=== PATIENT | male | born 2000 | race Two or more races ===

== ENCOUNTER 2024-03-05 14:13 | Outpatient (REF) | payer OTHER, SELFPAY ==
--- NOTE | ~2024-03-05 | MR_ITS ---
EXAMINATION: MR BRAIN WITHOUT CONTRAST CLINICAL INFORMATION: Constant headache for one month, increased frequency, blurring of vision COMPARISON: None available. TECHNIQUE: MRI of the brain was obtained using routine sequences without contrast. FINDINGS: Ventricles, sulci and cisterns are normal. No focal cerebral, brainstem or cerebellar lesions with abnormal signal can be seen. Diffusion weighted images show no abnormal regional decrease in diffusion. Normal flow voids of major intracerebral blood vessels are seen in the visualized portion. The pituitary gland is normal. Optic chiasm is not displaced. Cerebellar tonsils position is normal. T2 hyperintense polypoid mucosal lesion is partially visualized at anterior medial left maxillary sinus floor, measuring 1.9 x 1.6 cm in size. MR/MR head/brain wo con IMPRESSION: 1. Normal MRI scan of the brain. 2. No acute cerebral infarction is seen. 3. No evidence of space occupying mass lesion could be found. 4. No evidence of intracranial hemorrhage. 5. Left maxillary sinus floor mucosal polyp or mucus retention cyst is present.
== END 2024-03-05 14:14 | disposition home or self-care (01) ==
LOC: HO.MRI 14:13
PROVIDERS: PCP Family Medicine; Visit Provider Family Medicine
DX: L40.9 Psoriasis, unspecified (principal); R51.9 Headache, unspecified
CPT/HCPCS: 70551

== ENCOUNTER 2025-06-14 06:23 | Outpatient (REF) | payer OTHER, SELFPAY ==
--- NOTE | ~2025-06-14 | US_ITS ---
EXAMINATION: US PELVIS, LIMITED/FOLLOW UP CLINICAL INFORMATION: Right inguinal pain, rule out hernia. COMPARISON: None available. TECHNIQUE: Grayscale and color Doppler ultrasound imaging of the right inguinal region and right lower quadrant was performed in the region of pain as directed by the patient. Examination was performed with and without Valsalva maneuver. FINDINGS: There is no evidence of hernia identified. There is no mass, abnormal lymph nodes, or abnormal fluid collection identified in the region of interest in the right lower quadrant and inguinal region. US/US pelvic limited IMPRESSION: Normal examination. No abnormality identified. Electronically signed by: Emanuel Sharma MD 06/14/2025 11:14 AM EDT
--- OUTSIDE RECORDS SUMMARY | 2025-06-14 06:25 | XMS_ITS | Encounter Summary ---
Author Organization [facility] Address [address] [place] [id number] Phone Care Team Providers Care Radiology Therapist Name Role Phone Pcp, Unknown Primary Care Provider Unavailabl e Encounter Details Date Type Department Care Team (Late st Contact Info) Description 08/16/2024 Procedure Pass [facility], Ct Scan - [facility] [address] [place] [address] Social History Tobacco Use Types Packs/Day Years Used Date Smoking Tobacco: Never Assessed Education Answer Date Recorded Are you interested in more education? Not on johny e 12/21/2022 Are you concerned about learning? Not on file 12/21/2022 No 12/21/2022 No 12/21/2022 Digital Access Answer Date Recorded No 01/21/2023 No 01/21/2023 Reliable internet access at home? Not on file 01/21/2023 Device with a working camera? Not on file Intimate Partner Violence Answer Date R ecorded Are you denied basic needs s uch as food, clothing, or medical care? No 12/18/2022 In the past 12 months have y ou been in a relationship with a person who hurts, threatens, or tries to control you? No 12/18/2022 Are you denied basic needs s uch as food, clothing, or medical care? No 12/18/2022 In the past 12 months have y ou been in a relationship with a person who hurts, threatens, or tries to control you? No 12/18/2022 Sex and Gender Information Value Date Recorded Sex Assigned at Male 12/18/2022 6:46 PM EDT Legal Sex Male 6:11 PM EDT Gender Identity Male 12/18/2022 6:46 PM EDT Sexual Orientation Not on file documented as of this encounter Plan of Treatment Not on file documented as of this encounter Visit Diagnoses Not on filedocumented in this encounter Care Teams Radiology Therapist Relationship Specialty Start Date End Date Pcp, Unknown PCP - General 12/18/22 documented as of this encounter Additional Source Comments The information contained in this document represents components of the legal health record. It is not the complete legal health record.[facility]
--- OUTSIDE RECORDS SUMMARY | 2025-06-14 06:25 | XMS_ITS | Clinical Summary ---
Author Organization [facility] Address [address] [place] [id number] Phone Care Team Providers Care Fruit And Vegetable Inspector Name Role Phone Pcp, Unknown Primary Care Provider Unavailabl e Allergies No known active allergies Medications propranoloL (INDERAL) 10 MG immediate release tablet Take 10 mg by mouth daily as needed. Active citalopram (CELEXA) 20 MG tablet Take 20 mg by mouth nightly at bedtime. Active doxycycline monohydrate (MONODOX) 100 MG capsule Take 1 capsule (100 mg total) by mouth 2 (two) times a day. 20 capsule Active Additional Information Patient not taking.Reported on 12/10/2024 Social History Tobacco Use Types Packs/Day Years Used Date Smoking Tobacco: Never Smokeless Tobacco: Never Tobacco Cessation:Counseling Given: Not Answered Alcohol Use Standard Drinks/Week Comments Yes 0 (1 standard drink = 0.6 oz pur e alcohol) rarely Education Answer Date Recorded Are you interested [...] as food, clothing, or medical care? No 12/13/2024 In the past 12 months have y ou been in a relationship with a person who hurts, threatens, or tries to control you? No 12/13/2024 Are you denied basic needs s uch as food, clothing, or medical care? No 12/13/2024 In the past 12 months have y ou been in a relationship with a person who hurts, threatens, or tries to control you? No 12/13/2024 Sex and Gender Information Value Date Recorded Sex Assigned at Male 12/18/2022 6:46 PM EDT Legal Sex Male 6:11 PM EDT Gender Identity Male 12/18/2022 6:46 PM EDT Sexual Orientation Not on file Last Filed Vital Signs Vital Sign Reading Time Taken Comments Blood Pressure 125/62 12/13/2024 9:58 AM EDT Pulse 77 12/13/2024 9:58 AM EDT Temperature 36.4 C (97.6 F) 12/13/2024 9:39 AM EDT Respiratory Rate 20 12/13/2024 9:58 AM EDT Oxygen Saturation 100% 12/13/2024 9:58 AM EDT Inhaled Oxygen Concentration - - Weight 86.2 kg (190 lb) 12/10/2024 2:07 PM EDT Height 172.7 cm (5' 8 ) 12/10/2024 2:07 PM EDT Body Mass Index 28.89 12/10/2024 2:07 PM EDT Plan of Treatment Health Maintenance Due Date Last Done Comments Adult Td,Tdap Booster 1998 DEPRESSION SCREENING 2010 HEPATITIS C SCREENING 2016 HIV ONE-TIME SCREENING (18-6 5 YEARS) 2016 INFLUENZA VACCINE (#1) 2025 05/08/2023 COVID-19 VACCINE ( - 2024-2 6 season) 2025 HPV VACCINES Completed 12/08/2024, 09/03/2024, 05/08/2023 SMOKING STATUS SCREENING (On ce After 26 Yrs) Completed 12/13/2024 HEPATITIS A VACCINES Aged Out No long er eligible based on patient's age to complete this topic HIB VACCINES Aged Out No longer eligi ble based on patient's age to complete this topic MENINGOCOCCAL VACCINES (ACWY) Aged Out No longer eligible based on patient's age to complete this topic MENINGOCOCCAL VACCINES (B) Aged Out N o longer eligible based on patient's age to complete this topic PNEUMOCOCCAL VACCINES (0-49 years) Aged Out No longer eligible b ased on patient's age to complete this topic Medical Devices Not on file Insurance [employer] [place] [address] [employer] [place] [facility] Care Teams Fruit And Vegetable Inspector Relationship Specialty Start Date End Date Pcp, Unknown PCP - General 12/18/22 Additional Source Comments The information contained in this document represents components of the legal health record. It is not the complete legal health record.[facility]
--- OUTSIDE RECORDS SUMMARY | 2025-06-14 06:25 | XMS_ITS | Encounter Summary ---
Author Organization [facility] Address [address] [place] [address] [place] [phone] Phone Care Team Providers Care Undergraduate Intern Name Role Phone Pcp, Unknown Primary Care Provider Unavailabl e Encounter Details Date Type Department Care Team (Late st Contact Info) Description 04/08/2024 Transcribe Orders Virtual Department [address] [place] [address] Mariama Casiano MD [address] [place] [phone] [email or web address] Nonintractable headache, unspecified chronicity pattern, unspecified headache type (Primary Dx) Social History Tobacco Use Types Packs/Day Years [...] documented as of this encounter Visit Diagnoses Diagnosis Nonintractable headache, unspecified chronicity pattern, unspecified headache type- Primary documented in this encounter Care Teams Undergraduate Intern Relationship Specialty Start Date End Date Pcp, Unknown PCP - General 12/18/22 documented as of this encounter Additional Source Comments The information contained in this document represents components of the legal health record. It is not the complete legal health record.[facility]
--- OUTSIDE RECORDS SUMMARY | 2025-06-14 06:25 | XMS_ITS | Encounter Summary ---
Author Organization [facility] Address [address] [place] [phone] Phone Care Team Providers Care Curtain Supervisor Name Role Phone Pcp, Unknown Primary Care Provider Unavailabl e Encounter Details Date Type Department Care Team ([facility] st Contact Info) Description 12/13/2024 Procedure Pass [facility] Admitting Dept Virtual Department [address] [place] [address] Social History Tobacco Use Types Packs/Day Years Used Date Smoking Tobacco: Never Smokeless Tobacco: Never Alcohol Use Standard Drinks/Week Comments Yes 0 [...] on filedocumented in this encounter Care Teams Curtain Supervisor Relationship Specialty Start Date End Date Pcp, Unknown PCP - General 12/18/22 documented as of this encounter Additional Source Comments The information contained in this document represents components of the legal health record. It is not the complete legal health record.[facility]
--- OUTSIDE RECORDS SUMMARY | 2025-06-14 06:25 | XMS_ITS | Encounter Summary ---
Author Organization [facility] Address [address] [place] [phone] Phone Care Team Providers Care Lusterer Name Role Phone Pcp, Unknown Primary Care Provider Unavailabl e Reason for Referral * MRI/CAT Scan - Closed Specialty Diagnoses / Procedures Referred By Sancho christina Referred To Contact Radiology Diagnoses Nonintractable headache, unspecified chronicity pattern, unspecified headache type Other fatigue RLQ abdominal pain Procedures CT Abdomen/Pelvis Gilma Rizo DO [address] [place] [address] Phone: tel: fax: [email or web address] Referral ID Status Reason Start Date Expiration Date Visits Re quested Visits Authorized [id number] Closed 08/16/2024 08/16/2025 1 1 Encounter Details Date Type Department Care Team (Late st Contact Info) Description 08/16/2024 Transcribe Orders Virtual Department [address] [place] [address] Gilma Rizo DO [address] [place] [address] [email or web address] Nonintractable headache, unspecified chronicity pattern, unspecified headache type (Primary Dx); Other fatigue; RLQ abdominal pain Social History Tobacco Use Types Packs/Day Years [...] on file documented as of this encounter Results * CT ABDOMEN/PELVIS WITH CONTRAST (08/29/2024 1:04 PM EST) Anatomical Region Laterality Modality Abdomen, Pelvis Computed Tomogra phy 09/02/2024 10:5 1 AM EST Addenda Addendum by Moose Kitchen MD on 09/02/2024 11:22 AM EST ADDENDUM: There is a questionable stenosis at the origin of the celiac axis which could be further assessed on MRA if there are any ischemic symptoms, although this would not be expected to be related to colonic blood loss or right lower quadrant pain. The main trunk of the SMA appears grossly patent. Impressions 09/02/2024 11:06 AM EST 1. No evidence of appendicitis, kaleb colitis, or other significant intra-abdominal or retroperitoneal pathology. 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 2. This study should not preclude further evaluation of gastrointestinal blood loss. Narrative 09/02/2024 11:[address] ABDOMEN/PELVIS WITH CONTRAST Referring clinician's provided indication for this examination in [facility]: Outside Radiology Order; intermittent RLQ pain x 2-3 months, hx bloody stools TECHNIQUE: Multidetector-row CT of the abdomen and pelvis was performed after administration of intravenous contrast using tailored dose modulation techniques. Images were reconstructed in the axial, coronal, and sagittal planes. COMPARISON: None FINDINGS: Lower Chest: No focal airspace consolidation or pleural effusion. Liver: No hepatomegaly or focal parenchymal lesion. Biliary: Gallbladder grossly unremarkable. No evidence of biliary obstruction. Spleen: No splenomegaly or focal parenchymal lesion. Pancreas: No parenchymal mass, duct dilatation, or peripancreatic infiltration. Adrenal Glands: No nodules. Kidneys/Ureters: No parenchymal mass, dominant cyst, hydronephrosis, or nephrolithiasis. Bowel: Stomach nondistended. No evidence of small bowel obstruction. Appendix unremarkable. Moderate colonic stool burden. No focal wall thickening, annular mass, or paracolic fat infiltration. Peritoneum/Retroperitoneum: No free fluid or mass. Lymph Nodes: No pathologically enlarged mesenteric, para-aortic, iliac chain, or inguinal lymph nodes demonstrated. Pelvic Organs/Bladder: No free fluid or mass. Bladder nondistended. Vessels: No aortoiliac aneurysm. Main trunks of the SMA appears patent. Questionable stenosis at origin of celiac axis. 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 Bones/Soft Tissues: No abdominal wall mass or bowel containing hernia. No traumatic or destructive skeletal lesions apparent. Procedure Note Moose Kitchen MD - 09/02/2024 CT ABDOMEN/PELVIS WITH CONTRAST Referring clinician's provided indication for this examination in [facility]:Outside Radiology Order; intermittent RLQ pain x 2-3 months, hx bloodystools TECHNIQUE: Multidetector-row CT of the abdomen and pelvis was performedafter administration of intravenous contrast using tailored dosemodulation techniques. Images were reconstructed in the axial, coronal,and sagittal planes. COMPARISON: None FINDINGS: Lower Chest: No focal airspace consolidation or pleural effusion. Liver: No hepatomegaly or focal parenchymal lesion. Biliary: Gallbladder grossly unremarkable. No evidence of biliaryobstruction. Spleen: No splenomegaly or focal parenchymal lesion. Pancreas: No parenchymal mass, duct dilatation, or peripancreaticinfiltration. Adrenal Glands: No nodules. Kidneys/Ureters: No parenchymal mass, dominant cyst, hydronephrosis, ornephrolithiasis. Bowel: Stomach nondistended. No evidence of small bowel obstruction.Appendix unremarkable. Moderate colonic stool burden. No focal wallthickening, annular mass, or paracolic fat infiltration. Peritoneum/Retroperitoneum: No free fluid or mass. Lymph Nodes: No pathologically enlarged mesenteric, para-aortic, iliacchain, or inguinal lymph nodes demonstrated. Pelvic Organs/Bladder: No free fluid or mass. Bladder nondistended. Vessels: No aortoiliac aneurysm. Main trunks of the SMA appears patent.Questionable stenosis at origin of celiac axis. 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 Bones/Soft Tissues: No abdominal wall mass or bowel containing hernia. Notraumatic or destructive skeletal lesions apparent. IMPRESSION: 1. No evidence of appendicitis, kaleb colitis, or other significantintra- abdominal or retroperitoneal pathology. 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 2. This study should not preclude further evaluation of gastrointestinalblood loss. Gilma Rizo DO IMG CT ABD/PELVIS Edited Resu lt - Final documented in this encounter Visit Diagnoses Diagnosis Nonintractable headache, unspecified chronicity pattern, unspecified headache type- Primary Other fatigue RLQ abdominal pain Abdominal pain, right lower quadrant Nonintractable headache, unspecified chronicity pattern, unspecified headache type Other fatigue RLQ abdominal pain Abdominal pain, right lower quadrant documented in this encounter Care Teams Lusterer Relationship Specialty Start Date End Date Pcp, Unknown PCP - General 12/18/22 documented as of this encounter Additional Source Comments The information contained in this document represents components of the legal health record. It is not the complete legal health record.[facility]
== END 2025-06-14 06:24 | disposition home or self-care (01) ==
LOC: HO.UMASIMG 06:23
PROVIDERS: Visit Provider Family Medicine
DX: R10.30 Lower abdominal pain, unspecified (principal)
CPT/HCPCS: 76857

== ENCOUNTER → 2025-06-14 10:48 | Outpatient (BNV) | payer OTHER, SELFPAY | PROVIDERS: Visit Provider Radiology Diagnostic Radiology | DX: R10.31 Right lower quadrant pain (principal) | CPT/HCPCS: 76857 ==